=== PATIENT | male | born 1945 | race Caucasian/White ===

== ENCOUNTER → 2017-11-26 | Day surgery (SDC) | payer OTHER ==
[~2017-11-26] VITALS: Ht 182.9 cm; Wt 120.8 kg
[~2017-11-26] MED LIST: PERCOCET 5-3251 EACH PO
--- NOTE | 2017-12-03 12:04 | Operative Report ---
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 We talked about infection bleeding pain numbness of the scalp recurrence hematoma seroma and as well as poor scarring. Once agreed informed consent was signed. Was taken to the operating placed supine on the table. Venodyne boots were placed anesthesia was given as well as intravenous antibiotics in the face was prepped and draped in usual sterile fashion. Transverse incision was made overlying skin with longitudinal spreading through the muscle down to the periosteum which was divided longitudinally. A bur drill bit was used to debride away the osteoma portion of which was sent for pathologic analysis. The bone was smoothed to the touch after further treatment and multiple layer closure was carried out anatomically. End dictation
== END ==
LOC: SDA 02:46 → STS 07:00 → EDSTATUS 07:00 → SDA 07:00
DX: D16.4 Benign neoplasm of bones of skull and face (principal); I10 Essential (primary) hypertension; J43.9 Emphysema, unspecified; M19.90 Unspecified osteoarthritis, unspecified site; Z79.82 Long term (current) use of aspirin; Z85.828 Personal history of other malignant neoplasm of skin
CPT/HCPCS: SDA; J0131; J0690